=== PATIENT | female | born 1990 | race Caucasian/White ===

== ENCOUNTER 2019-08-08 13:01 | Emergency (ER) | payer MEDICAID, OTHER ==
[~2019-08-08] VITALS: Ht 162.6 cm; Wt 89.8 kg
[2019-08-08 13:28] VITALS: BP 149/92
[2019-08-08] MEDS ORDERED: KETOROLAC TROMETH 60MG/2ML VIAL IM ONE (15:45)
[2019-08-08] MEDS ORDERED: methylPREDNISolone SOD SUCC 125 MG/2 ML VL IM ONE (15:45)
== END 2019-08-08 16:06 | disposition home or self-care (01) ==
LOC: ER 13:01
DX: M75.32 Calcific tendinitis of left shoulder (principal); F17.210 Nicotine dependence, cigarettes, uncomplicated; Z91.013 Allergy to seafood
CPT/HCPCS: 73030; 96372; 99284; J1885; J2930

== ENCOUNTER 2019-09-09 05:50 | Emergency (ER) | payer MEDICAID ==
[~2019-09-09] VITALS: Ht 162.6 cm; Wt 90.7 kg
[2019-09-09 06:34] VITALS: BP 130/85
== END 2019-09-09 06:52 | disposition home or self-care (01) ==
LOC: ER 05:50
DX: K08.89 Other specified disorders of teeth and supporting structures (principal); F17.210 Nicotine dependence, cigarettes, uncomplicated; Z91.013 Allergy to seafood; Z91.048 Other nonmedicinal substance allergy status

== ENCOUNTER 2019-09-13 00:46 | Inpatient (IN) | payer MEDICAID ==
[~2019-09-13] VITALS: Ht 162.6 cm; Wt 101.3 kg
[2019-09-13 01:45] LABS: Basophils # (auto) 0 10 ^3/uL (0-0.2); Basophils % (auto) 0.1 % (0.0-2.0); Eosinophils # (auto) 0.1 10 ^3/uL (0-0.8); Eosinophils % (auto) 0.6 % (0.0-7.0); Hematocrit 34.4 % (36.0-46.0); Hemoglobin 11.8 g/dL (12.2-16.2); Lymphocytes # (auto) 1.7 10 ^3/uL (0.4-5.4); Lymphocytes % (auto) 8.8 % (10.0-50.0); Mean Corpuscular Hemoglobin 31.2 pg (28.0-32.0); Mean Corpuscular Hgb Conc. 34.2 g/dL (32.0-36.0); Mean Corpuscular Volume 91.3 fL (80.0-100.0); Monocytes # (auto) 0.8 10 ^3/uL (0-1.3); Monocytes % (auto) 4.2 % (0.0-12.0); Neutrophils # (auto) 16.9 10 ^3/uL (1.6-8.6); Neutrophils % (auto) 86.3 % (37.0-80.0); Platelet Count (auto) 304 10^3/uL (140-450); Red Blood Cells 3.77 10^6/uL (4.0-5.20); Red Cell Distribution Width 13.1 % (11.8-14.3); White Blood Cell 19.6 10^3/uL (4.4-10.8)
[2019-09-13 02:03] LABS: Albumin 3.6 g/dL (3.4-5.0); BUN/Creatinine Ratio 12.8; Potassium 3.5 mmol/L (3.5-5.1)
[2019-09-13 02:05] LABS: Urine Bacteria FEW /hpf (None Seen); Urine Blood 2+ /uL (Negative); Urine Mucus FEW (None Seen); Urine Specific Gravity 1.035 (1.001-1.035); Urine Sperm PRESENT /hpf (None Seen); Urine WBC 2 /hpf (0 - 5)
[2019-09-13 02:06] LABS: Bilirubin, Total 0.5 mg/dL (0.2-1.0); Total Protein 7.3 g/dL (6.4-8.2)
[2019-09-13] MEDS ORDERED: SODIUM CHLORIDE 0.9% 1,000 ML IV ONE (04:00)
[2019-09-13] MEDS ORDERED: SODIUM CHLORIDE 0.9% 1,000 ML IV SCH (05:30)
[2019-09-13] MEDS ORDERED: SUCCINYLCHOLINE CHLORIDE 20 MG/ML 10ML VIAL IV ONE (06:02)
[2019-09-13] MEDS ORDERED: MIDAZOLAM HCL 1MG/1ML-2 ML VIAL ONE (06:09)
[2019-09-13] MEDS ORDERED: MEPERIDINE HCL (50 MG/ML) 1 ML VIAL ONE (06:09)
[2019-09-13] MEDS ORDERED: fentaNYL CITRATE 100 MCG/2 ML VL ONE (06:09)
[2019-09-13] MEDS ORDERED: DexAMETHasone SOD PHOS 10MG/1ML VIAL INJ ONE (06:10)
[2019-09-13] MEDS ORDERED: PROPOFOL 10 MG/ML 20 ML IV ONE (06:10)
[2019-09-13 06:14] LABS: INR 1.01 (0.9-1.15); Partial Thromboplastin Time 25.9 sec (23.64-32.05)
[2019-09-13] MEDS: LACTATED RINGER'S 1,000 ML IV SCH ×3 (06:21→19:41)
[2019-09-13] MEDS ORDERED: ceFAZolin 1GM/50ML 50 ML IV ONE (06:21)
[2019-09-13] MEDS ORDERED: HYDROmorphone HCL 2 MG/ML VL IV PRN (06:30)
[2019-09-13] MEDS ORDERED: MIDAZOLAM HCL 1MG/1ML-2 ML VIAL IV PRN (06:30)
[2019-09-13] MEDS ORDERED: MORPHINE SULF INJ 2 MG/ML SYRINGE 1ML IV PRN ×2 (06:30)
[2019-09-13] MEDS ORDERED: LABETALOL HCL 5 MG/ML 4ML SYRINGE IV PRN (06:30)
[2019-09-13] MEDS ORDERED: ONDANSETRON HCL 4 MG/2 ML VIAL IV PRN ×2 (06:30)
[2019-09-13] MEDS ORDERED: METOCLOPRAMIDE HCL 5MG/ml INJ 2ml VIAL IV PRN (06:30)
[2019-09-13] MEDS ORDERED: ePHEDrine SULFATE 50 MG/ML AMP IV PRN (06:30)
[2019-09-13] MEDS ORDERED: GLYCOPYRROLATE 0.2 MG/ML 1ML VIAL ONE (07:21)
[2019-09-13] MEDS ORDERED: NEOSTIGMINE 1 MG/ML INJ (10mg/10ML VIAL) ONE (07:21)
[2019-09-13] MEDS ORDERED: MEPERIDINE HCL (25 MG/ML) 1ML VIAL ONE (07:39)
[2019-09-13 08:09] LABS: Alcohol, Urine < 3.0 mg/dL (0-10); Amphetamine Screen, Urine POSITIVE (NEGATIVE); Barbiturate Scree,Urine NEGATIVE (NEGATIVE); Benzodiazephine Screen, Urine NEGATIVE (NEGATIVE); Cannabinoid Screen, Urine POSITIVE (NEGATIVE); Cocaine Screen, Urine NEGATIVE (NEGATIVE); Opiate Scree,Urine NEGATIVE (NEGATIVE); Phencyclidine Screen, Urine NEGATIVE (NEGATIVE)
[2019-09-13 09:00] VITALS: BP 102/58
--- NOTE | 2019-09-13 09:00 | NUR ---
Telemetry admit from OR JULIÁN BLANCHARD s/p right fallopian tube removal. Admitted to Telemetry unit after SBAR received. Patient oriented to JARAD MONTERO RN primary RN, unit, room, bed, and unit policies regarding patient care and visiting hours. Patient placed on bedside oxygen, weighed by bedscale and encouraged to call if they need something. All questions and concerns addressed, patient verbalized understanding.
[2019-09-13 13:00] VITALS: BP 106/59
[2019-09-13] MEDS: ceFAZolin 1GM/50ML 50 ML IV SCH ×2 (15:05→22:33)
[2019-09-13 17:00] VITALS: BP 135/68
--- NOTE | 2019-09-13 19:00 | NUR ---
Opening Shift Note Assumed care of patient, awake and alert. No S/S of distress/SOB. Patient in pain, s/p exploratory laparotomy with removal of right fallopian post ectopic . Patient states that she does not like morphine, states it gives her a terrible headache. Patient does not want morphine at this time, awaiting call from doctor for new pain medication to administer. Instructed on POC and to call for assist PRN, will continue to monitor for changes Q1hr and PRN. Patient in the lowest possible position with call light within reach.
[2019-09-13 20:00] VITALS: BP 105/62
[2019-09-13 20:09] LABS: Basophils # (auto) 0 10 ^3/uL (0-0.2); Eosinophils # (auto) 0 10 ^3/uL (0-0.8); Hematocrit 27.7 % (36.0-46.0); Hemoglobin 9.3 g/dL (12.2-16.2); Lymphocytes # (auto) 0.7 10 ^3/uL (0.4-5.4); Mean Corpuscular Hemoglobin 30.9 pg (28.0-32.0); Mean Corpuscular Hgb Conc. 33.7 g/dL (32.0-36.0); Mean Corpuscular Volume 91.7 fL (80.0-100.0); Monocytes # (auto) 0.7 10 ^3/uL (0-1.3); Monocytes % (auto) 4.5 % (0.0-12.0); Neutrophils # (auto) 13.2 10 ^3/uL (1.6-8.6); Neutrophils % (auto) 90.5 % (37.0-80.0); Platelet Count (auto) 237 10^3/uL (140-450); Red Blood Cells 3.02 10^6/uL (4.0-5.20); White Blood Cell 14.6 10^3/uL (4.4-10.8)
[2019-09-13 22:00] VITALS: BP 105/62
[2019-09-14] MEDS: ACETAMINOPHEN/CODEINE#3 (300/30mg) TAB PO PRN ×2 (00:36→05:22)
[2019-09-14] MEDS: LACTATED RINGER'S 1,000 ML IV SCH ×3 (02:21→13:55)
[2019-09-14 05:00] VITALS: BP 102/62
[2019-09-14] MEDS: ceFAZolin 1GM/50ML 50 ML IV SCH ×3 (05:22→22:05)
--- NOTE | 2019-09-14 07:01 | NUR ---
Closing note. Patient in lowest possible position with bed rails up x2 and call light within reach. Patient does not complain of pain at this time. Will endorse to day shift RN.
[2019-09-14 07:06] LABS: Basophils # (auto) 0 10 ^3/uL (0-0.2); Eosinophils # (auto) 0 10 ^3/uL (0-0.8); Eosinophils % (auto) 0.1 % (0.0-7.0); Hematocrit 25.6 % (36.0-46.0); Hemoglobin 8.6 g/dL (12.2-16.2); Lymphocytes # (auto) 1.9 10 ^3/uL (0.4-5.4); Lymphocytes % (auto) 13.9 % (10.0-50.0); Mean Corpuscular Hemoglobin 30.8 pg (28.0-32.0); Mean Corpuscular Hgb Conc. 33.7 g/dL (32.0-36.0); Mean Corpuscular Volume 91.4 fL (80.0-100.0); Monocytes # (auto) 0.9 10 ^3/uL (0-1.3); Neutrophils # (auto) 10.7 10 ^3/uL (1.6-8.6); Platelet Count (auto) 238 10^3/uL (140-450); Red Blood Cells 2.81 10^6/uL (4.0-5.20); Red Cell Distribution Width 13.1 % (11.8-14.3); White Blood Cell 13.5 10^3/uL (4.4-10.8)
--- NOTE | 2019-09-14 07:25 | NUR ---
assumed care Patient currently sleeping, respirations even and unlabored, no s/s of SOB or distress noted at this time. Fall precautions in place. Call light within reach, will continue care.
[2019-09-14] MEDS ORDERED: BISACODYL 10 MG RECT SUPP PR PRN (08:30)
[2019-09-14 09:00] VITALS: BP 95/53
[2019-09-14] MEDS ORDERED: ACETAMINOPHEN/CODEINE#3 (300/30mg) TAB PO PRN (10:15)
[2019-09-14] MEDS: HYDROcodone-ACET 10/325MG TAB PO PRN ×4 (10:49→23:20)
[2019-09-14] MEDS: DOCUSATE SOD 100 MG CAP PO SCH ×2 (10:49→22:06)
[2019-09-14] MEDS: DOCUSATE CALCIUM 240 MG CAP PO SCH (10:49)
[2019-09-14] MEDS: FERROUS SULFATE 325 MG TAB PO SCH ×2 (12:29→17:58)
[2019-09-14 13:00] VITALS: BP 94/57
--- NOTE | 2019-09-14 14:25 | NUR ---
Advancing diet Patient passed gas per MD orders will advance diet to full liquids.
[2019-09-14 17:00] VITALS: BP 98/58
--- NOTE | 2019-09-14 19:00 | NUR ---
Opening Shift Note Assumed care of patient, awake and alert. No S/S of distress/SOB or pain. Instructed on POC and to call for assist PRN, will continue to monitor for changes Q1hr and PRN. patient in the lowest possible position with call light within reach.
[2019-09-14 20:00] VITALS: BP 103/72
[2019-09-14 22:00] VITALS: BP 103/72
[2019-09-15 04:38] VITALS: BP 93/54
[2019-09-15] MEDS: HYDROcodone-ACET 10/325MG TAB PO PRN ×2 (05:42→16:33)
[2019-09-15] MEDS: ceFAZolin 1GM/50ML 50 ML IV SCH ×3 (05:42→21:36)
[2019-09-15 09:00] VITALS: BP 94/60
--- NOTE | 2019-09-15 09:15 | NUR ---
ROUNDING MD MIRAMONTES AT BEDSIDE. ALL QUESTIONS AND CONCERNS ADDRESSED AT THIS TIME
[2019-09-15] MEDS: DOCUSATE SOD 100 MG CAP PO SCH ×2 (09:46→21:36)
[2019-09-15] MEDS: FERROUS SULFATE 325 MG TAB PO SCH ×3 (09:46→17:27)
[2019-09-15] MEDS: LACTATED RINGER'S 1,000 ML IV SCH (09:47)
[2019-09-15] MEDS: DOCUSATE CALCIUM 240 MG CAP PO SCH (09:47)
--- NOTE | 2019-09-15 09:48 | NUR ---
Opening Shift Note Assumed care of patient, awake and alert. No S/S of distress/SOB or pain. Dressing CDI. Instructed on POC and to call for assist PRN, will continue to monitor for changes Q1hr and PRN. patient in the lowest possible position with call light within reach.
[2019-09-15 20:00] VITALS: BP 97/61
--- NOTE | 2019-09-15 20:12 | NUR ---
Opening Shift Note Assumed care of patient, awake and alert. No S/S of distress/SOB. Patient states that she has mild pain that is tolerable. Stated that she did not want any medication at this time for her pain of a 6/10 and would call when she needs it. Will continue to monitor for pain. Patient has incision open to air. Curt are in tact, incision is C/D/I, will reapply abdomen pad as needed. Instructed on POC and to call for assist PRN, will continue to monitor for changes Q1hr and PRN. Patient in the lowest possible position with bed rails up x2 and call light within reach.
[2019-09-15 22:00] VITALS: BP 97/61
[2019-09-16] MEDS: LACTATED RINGER'S 1,000 ML IV SCH ×2 (00:21→12:01)
[2019-09-16 05:00] VITALS: BP 102/63
[2019-09-16] MEDS: ceFAZolin 1GM/50ML 50 ML IV SCH ×2 (06:06→14:00)
[2019-09-16] MEDS: DOCUSATE CALCIUM 240 MG CAP PO SCH (08:33)
[2019-09-16] MEDS: FERROUS SULFATE 325 MG TAB PO SCH ×2 (08:33→12:01)
[2019-09-16] MEDS: DOCUSATE SOD 100 MG CAP PO SCH (08:33)
[2019-09-16 09:00] VITALS: BP 122/71
[2019-09-16 13:00] VITALS: BP 139/97
--- NOTE | 2019-09-16 14:19 | NUR ---
Nutrition Assessment Notes Please see attached link for complete assessment Est [employer] needs ABW 77 [id number] kcals (20-23 kcal/kgBW), Est Protein needs: 77-84 gms/day (1.0-1.1 gm/kgBW) Will continue to monitor and reassess prn. Addendum: 09/16/19 at [address] Amended: Links added.
--- NOTE | 2019-09-16 15:12 | NUR ---
Discharge instructions given as ordered. Encourage to follow up with PMD as instructed. All questions and concerns addressed. Patient verbalized understanding. Medication reconciliation form completed and copy given to patient. . IV removed with catheter intact, pressure dressing applied, Patient taken to vehicle via wheelchair with all personal belongings, accompanied by staff and family member. No distress noted at time of departure.
== END 2019-09-16 15:12 | disposition home or self-care (01) | DRG 545 ==
LOC: ER 00:47 → OVERFLOW 00:48 → CENTRAL 09:09
PROVIDERS: ADMIT Obstetrics & Gynecology; ATTEND Obstetrics & Gynecology
PROC: 10T20ZZ Resection of Products of Conception, Ectopic, Open Approach (ICD-10-PCS; 2019-09-13)
PROC: 0UB50ZZ Excision of Right Fallopian Tube, Open Approach (ICD-10-PCS; principal; 2019-09-13 06:26)
DX: O00.101 Right tubal pregnancy without intrauterine pregnancy (principal); K66.1 Hemoperitoneum; F17.210 Nicotine dependence, cigarettes, uncomplicated
CPT/HCPCS: 36415; 76801; 76817; 80053; 80307; 81001; 83605; 84702; 85025; 85610; 85730; 86850; 86900; 86901; 96360; G0378; J0330; J0690; J1100; J2250; J2405; J2704

== ENCOUNTER 2020-02-02 12:48 | Emergency (ER) | payer MEDICAID ==
[~2020-02-02] VITALS: Ht 162.6 cm; Wt 98.9 kg
[2020-02-02 12:56] VITALS: BP 128/90
== END 2020-02-02 14:21 | disposition home or self-care (01) ==
LOC: ER 12:48
DX: Z76.0 Encounter for issue of repeat prescription (principal); M25.512 Pain in left shoulder; F17.210 Nicotine dependence, cigarettes, uncomplicated

== ENCOUNTER 2020-09-28 13:00 | Observation (INO) | payer MEDICAID ==
[2020-09-28] MEDS ORDERED: PREN-96 PO (13:39)
[2020-09-28 15:56] LABS: Alcohol, Urine < 3.0 mg/dL (0-10); Amphetamine Screen, Urine NEGATIVE (NEGATIVE); Barbiturate Scree,Urine NEGATIVE (NEGATIVE); Cannabinoid Screen, Urine NEGATIVE (NEGATIVE); Cocaine Screen, Urine NEGATIVE (NEGATIVE); Opiate Scree,Urine NEGATIVE (NEGATIVE); Phencyclidine Screen, Urine NEGATIVE (NEGATIVE)
[2020-09-28 16:11] LABS: Benzodiazephine Screen, Urine NEGATIVE (NEGATIVE)
== END 2020-09-28 14:22 | disposition home or self-care (01) ==
LOC: LDRP 13:00
PROVIDERS: ADMIT Specialist; ATTEND Specialist
DX: O26.893 Other specified pregnancy related conditions, third trimester (principal); R05 Cough; R10.9 Unspecified abdominal pain; O99.891 Other specified diseases and conditions complicating pregnancy; H92.09 Otalgia, unspecified ear; Z3A.31 31 weeks gestation of pregnancy
CPT/HCPCS: 59025; 80307; 81002; 94760; G0378

== ENCOUNTER 2020-09-28 14:48 | Emergency (ER) | payer MEDICAID ==
[~2020-09-28] VITALS: Ht 162.6 cm; Wt 115.2 kg
[~2020-09-28 14:48] MED LIST: PREN-96 PO
[2020-09-28 17:40] VITALS: BP 127/64
== END 2020-09-28 17:49 | disposition home or self-care (01) ==
LOC: ER 14:49
DX: O99.513 Diseases of the respiratory system complicating pregnancy, third trimester (principal); J32.9 Chronic sinusitis, unspecified; F17.210 Nicotine dependence, cigarettes, uncomplicated; Z91.013 Allergy to seafood; Z91.048 Other nonmedicinal substance allergy status; Z79.899 Other long term (current) drug therapy; Z98.890 Other specified postprocedural states; Z3A.32 32 weeks gestation of pregnancy

== ENCOUNTER 2020-10-19 13:06 | Observation (INO) | payer MEDICAID | END 2020-10-19 15:30 | disposition home or self-care (01) | LOC: LDRP 13:06 | PROVIDERS: ADMIT Specialist; ATTEND Specialist | DX: O60.03 Preterm labor without delivery, third trimester (principal); Z3A.34 34 weeks gestation of pregnancy; Z87.891 Personal history of nicotine dependence | CPT/HCPCS: 59025; 81002; 94760; G0378 ==

== ENCOUNTER 2020-10-25 05:25 | Observation (INO) | payer MEDICAID ==
[~2020-10-25] VITALS: Ht 162.6 cm; Wt 108.9 kg
[2020-10-25] MEDS ORDERED: ONDANSETRON HCL 4 MG/2 ML VIAL IV ONE (06:15)
[2020-10-25] MEDS ORDERED: LACTATED RINGER'S 1,000 ML IV ONE (06:15)
[2020-10-25] MEDS ORDERED: TERBUTALINE SULFATE 1 MG/ML 1ML VIAL SC SCH (06:15)
[2020-10-25 06:43] LABS: Urine Bacteria FEW /hpf (None Seen); Urine Blood Negative /uL (Negative); Urine Mucus FEW (None Seen); Urine Specific Gravity 1.035 (1.001-1.035); Urine WBC 2 /hpf (0 - 5)
[2020-10-25 07:07] LABS: Alcohol, Urine < 3.0 mg/dL (0-10); Amphetamine Screen, Urine NEGATIVE (NEGATIVE); Barbiturate Scree,Urine NEGATIVE (NEGATIVE); Benzodiazephine Screen, Urine NEGATIVE (NEGATIVE); Cannabinoid Screen, Urine NEGATIVE (NEGATIVE); Cocaine Screen, Urine NEGATIVE (NEGATIVE); Opiate Scree,Urine NEGATIVE (NEGATIVE); Phencyclidine Screen, Urine NEGATIVE (NEGATIVE)
== END 2020-10-25 07:55 | disposition home or self-care (01) ==
LOC: LDRP 05:25
PROVIDERS: ADMIT Obstetrics & Gynecology; ATTEND Obstetrics & Gynecology
DX: O21.2 Late vomiting of pregnancy (principal); O26.893 Other specified pregnancy related conditions, third trimester; R19.7 Diarrhea, unspecified; R10.9 Unspecified abdominal pain; O62.9 Abnormality of forces of labor, unspecified; Z3A.35 35 weeks gestation of pregnancy; Z98.891 History of uterine scar from previous surgery; Z79.899 Other long term (current) drug therapy
CPT/HCPCS: 59025; 80307; 81001; 81002; 96361; 96372; 96374; G0378; J2405; J3105; 96360

== ENCOUNTER 2020-10-29 09:25 | Observation (INO) | payer MEDICAID ==
[2020-10-29] MEDS ORDERED: LEVO200I5 IV (10:22)
[2020-10-29 10:30] LABS: Basophils # (auto) 0 10 ^3/uL (0-0.2); Eosinophils # (auto) 0.1 10 ^3/uL (0-0.8); Eosinophils % (auto) 0.8 % (0.0-7.0); Monocytes # (auto) 0.9 10 ^3/uL (0-1.3)
[2020-10-29 10:31] LABS: Basophils % (auto) 0.3 % (0.0-2.0); Hematocrit 30.4 % (36.0-46.0); Lymphocytes % (auto) 14.6 % (10.0-50.0); Mean Corpuscular Volume 78.7 fL (80.0-100.0); Monocytes % (auto) 6.5 % (0.0-12.0); Neutrophils # (auto) 10.6 10 ^3/uL (1.6-8.6); Neutrophils % (auto) 77.8 % (37.0-80.0); Red Blood Cells 3.87 10^6/uL (4.0-5.20); Red Cell Distribution Width 15.3 % (11.8-14.3); White Blood Cell 13.7 10^3/uL (4.4-10.8)
[2020-10-29 10:44] LABS: Urine Bacteria FEW /hpf (None Seen); Urine Blood Negative /uL (Negative); Urine Mucus FEW (None Seen); Urine Specific Gravity 1.021 (1.001-1.035); Urine WBC 2 /hpf (0 - 5)
[2020-10-29 10:55] LABS: Albumin 2.5 g/dL (3.4-5.0); Calcium 8.1 mg/dL (8.5-10.1); Potassium 3.9 mmol/L (3.5-5.1)
[2020-10-29 10:57] LABS: Protein, Urine 13.3 mg/dL (0.0-11.9)
[2020-10-29 10:59] LABS: BUN/Creatinine Ratio 12.7; Bilirubin, Total 0.3 mg/dL (0.2-1.0); Uric Acid 5.3 mg/dL (2.6-6.0)
[2020-10-29 11:03] LABS: INR 0.96 (0.9-1.15); Partial Thromboplastin Time 26.8 sec (23.0-31.2)
== END 2020-10-29 11:55 | disposition home or self-care (01) ==
LOC: LDRP 09:25
PROVIDERS: ADMIT Specialist; ATTEND Specialist
DX: O99.283 Endocrine, nutritional and metabolic diseases complicating pregnancy, third trimester (principal); E03.9 Hypothyroidism, unspecified; O60.03 Preterm labor without delivery, third trimester; Z91.040 Latex allergy status; Z3A.36 36 weeks gestation of pregnancy; Z87.891 Personal history of nicotine dependence; Z79.899 Other long term (current) drug therapy
CPT/HCPCS: 36415; 59025; 76818; 80053; 81001; 81002; 82570; 84156; 84550; 85025; 85610; 85730; 94760; G0378

== ENCOUNTER 2020-10-31 10:45 | Observation (INO) | payer MEDICAID ==
[~2020-10-31 10:45] MED LIST changes: +LEVO200I5 IV
[2020-10-31 15:09] LABS: Protein, Urine 7.9 mg/dL (0.0-11.9)
[2020-10-31 15:32] LABS: 24 Hr. Total Protein, Urine 39.5 mg/24 Hr (<149.1)
== END 2020-10-31 13:15 | disposition home or self-care (01) ==
LOC: LDRP 10:45
PROVIDERS: ADMIT Obstetrics & Gynecology; ATTEND Obstetrics & Gynecology
DX: O40.3XX0 Polyhydramnios, third trimester, not applicable or unspecified (principal); O13.3 Gestational [pregnancy-induced] hypertension without significant proteinuria, third trimester; O99.283 Endocrine, nutritional and metabolic diseases complicating pregnancy, third trimester; E03.9 Hypothyroidism, unspecified; Z3A.36 36 weeks gestation of pregnancy; Z87.891 Personal history of nicotine dependence
CPT/HCPCS: 59025; 76818; 81002; 84156; 94760; G0378

== ENCOUNTER 2020-11-02 22:04 | Observation (INO) | payer MEDICAID | END 2020-11-02 23:22 | disposition home or self-care (01) | LOC: LDRP 22:04 | PROVIDERS: ADMIT Specialist; ATTEND Specialist | DX: O99.891 Other specified diseases and conditions complicating pregnancy (principal); M54.9 Dorsalgia, unspecified; M19.90 Unspecified osteoarthritis, unspecified site; Z87.891 Personal history of nicotine dependence; Z3A.36 36 weeks gestation of pregnancy | CPT/HCPCS: 59025; 81002; G0378 ==